=== PATIENT | female | born 1945 | race Caucasian/White ===

== ENCOUNTER 2017-09-19 15:31 | Inpatient (IN) | payer MEDICARE ==
[~2017-09-19] VITALS: Ht 157.5 cm; Wt 46.7 kg
[2017-09-19 17:00] VITALS: BP 130/88
[2017-09-19] MEDS ORDERED: MAG HYDROX/AL HYDROX/SIMETH 30 ML LIQUID UDC PO PRN (17:30)
[2017-09-19] MEDS ORDERED: MAGNESIUM HYDROXIDE 30 ML LIQUID UDC PO PRN (17:30)
[2017-09-19] MEDS ORDERED: ACETAMINOPHEN 325 MG TABLET PO PRN (17:30)
[2017-09-19] MEDS ORDERED: NO HOME MEDS (17:40)
[2017-09-19] MEDS ORDERED: TEMAZEPAM 7.5 MG CAPSULE PO PRN (17:45)
[2017-09-19] MEDS ORDERED: CLONAZEPAM 0.5 MG TABLET PO PRN (17:45)
[2017-09-19 20:14] VITALS: BP 119/69
[2017-09-20 06:47] LABS: BASOPHILS % (AUTO) 0.4 % (0.0-2.0); EOSINOPHILS # (AUTO) 0.1 K/uL (0.0-0.7); EOSINOPHILS % (AUTO) 1.6 % (0.0-7.0); HEMATOCRIT 37.2 % (31.2-41.9); HEMOGLOBIN 12.5 g/dL (10.9-14.3); LYMPHOCYTES % (AUTO) 22.7 % (20.5-51.5); MEAN CORPUSCULAR HEMOGLOBIN 29.2 uug (24.7-32.8); MEAN CORPUSCULAR HGB CONC 34 g/dL (32.3-35.6); MEAN CORPUSCULAR VOLUME 86.7 fL (75.5-95.3); MONOCYTES # (AUTO) 0.3 K/uL (2.0-10.0); MONOCYTES % (AUTO) 7.7 % (0.0-11.0); NEUTROPHILS % (AUTO) 67.6 % (38.5-71.5); PLATELET COUNT (AUTO) 186 K/uL (179-408); RED BLOOD CELL COUNT(AUTO) 4.29 MIL/uL (3.63-4.92); WHITE BLOOD COUNT (AUTO) 4.4 K/uL (3.8-11.8)
[2017-09-20 07:18] LABS: THYROID STIMULATING HORMONE 1.496 mIU/mL (0.358-3.740)
[2017-09-20 07:30] VITALS: BP 127/77
[2017-09-20 07:36] LABS: BILIRUBIN,TOTAL 0.9 mg/dL (0.2-1.0); MAGNESIUM 2.3 mg/dL (1.8-2.4); PHOSPHOROUS 3.8 mg/dL (2.5-4.9); POTASSIUM 4.2 mmol/L (3.5-5.1); TOTAL PROTEIN, SERUM 6.3 g/dL (6.4-8.2)
[2017-09-20] MEDS: OLANZAPINE ZYDIS 5 MG TAB.RAPDIS PO SCH (11:31)
[2017-09-20 15:26] VITALS: BP 102/63
[2017-09-20 20:23] VITALS: BP 105/73
[2017-09-21] MEDS: OLANZAPINE ZYDIS 5 MG TAB.RAPDIS PO SCH (08:26)
[2017-09-21 11:12] VITALS: BP 110/70
[2017-09-21 16:56] VITALS: BP 90/50
[2017-09-21 19:30] VITALS: BP 100/64
[2017-09-22 07:30] VITALS: BP 110/72
[2017-09-22] MEDS: OLANZAPINE ZYDIS 5 MG TAB.RAPDIS PO SCH (08:06)
[2017-09-22] MEDS: CHOLECALCIFEROL 1,000 UNIT TABLET PO SCH (08:06)
[2017-09-22 15:17] VITALS: BP 102/65
[2017-09-22 19:30] VITALS: BP 97/69
[2017-09-23 07:30] VITALS: BP 105/69
[2017-09-23] MEDS: CHOLECALCIFEROL 1,000 UNIT TABLET PO SCH (08:07)
[2017-09-23] MEDS: OLANZAPINE ZYDIS 5 MG TAB.RAPDIS PO SCH (08:07)
[2017-09-23 15:00] VITALS: BP 100/60
[2017-09-23 20:16] VITALS: BP 114/67
[2017-09-24 07:30] VITALS: BP 91/64
[2017-09-24] MEDS: CHOLECALCIFEROL 1,000 UNIT TABLET PO SCH (08:59)
[2017-09-24] MEDS: OLANZAPINE ZYDIS 5 MG TAB.RAPDIS PO SCH (08:59)
[2017-09-24 15:39] VITALS: BP 91/59
[2017-09-24 20:04] VITALS: BP 93/60
[2017-09-25 07:30] VITALS: BP 97/63
[2017-09-25] MEDS: CHOLECALCIFEROL 1,000 UNIT TABLET PO SCH (08:23)
[2017-09-25] MEDS: OLANZAPINE ZYDIS 5 MG TAB.RAPDIS PO SCH (08:23)
[2017-09-25 17:20] VITALS: BP 99/65
[2017-09-25 21:01] VITALS: BP 103/63
[2017-09-26 07:30] VITALS: BP 114/69
[2017-09-26] MEDS: OLANZAPINE ZYDIS 5 MG TAB.RAPDIS PO SCH (08:29)
[2017-09-26] MEDS: CHOLECALCIFEROL 1,000 UNIT TABLET PO SCH (08:29)
[2017-09-26 15:32] VITALS: BP 95/65
[2017-09-26 20:20] VITALS: BP 112/61
[2017-09-27 07:30] VITALS: BP 92/57
[2017-09-27] MEDS: OLANZAPINE ZYDIS 5 MG TAB.RAPDIS PO SCH (08:12)
[2017-09-27] MEDS: CHOLECALCIFEROL 1,000 UNIT TABLET PO SCH (08:13)
[2017-09-27 15:53] VITALS: BP 107/65
[2017-09-27 20:14] VITALS: BP 110/74
[2017-09-28 07:30] VITALS: BP 117/66
[2017-09-28] MEDS: CHOLECALCIFEROL 1,000 UNIT TABLET PO SCH (08:24)
[2017-09-28] MEDS: OLANZAPINE ZYDIS 5 MG TAB.RAPDIS PO SCH (08:27)
[2017-09-28 15:47] VITALS: BP 100/64
[2017-09-28 19:30] VITALS: BP 108/65
[2017-09-29 07:30] VITALS: BP 108/64
[2017-09-29] MEDS: CHOLECALCIFEROL 1,000 UNIT TABLET PO SCH (08:23)
[2017-09-29] MEDS ORDERED: OLANZAPINE ZYDIS 5 MG TAB.RAPDIS PO SCH (09:00)
[2017-09-29 15:28] VITALS: BP 107/67
[2017-09-29 19:30] VITALS: BP 107/68
[2017-09-30 07:30] VITALS: BP 126/73
[2017-09-30] MEDS: CHOLECALCIFEROL 1,000 UNIT TABLET PO SCH (09:12)
[2017-09-30] MEDS: OLANZAPINE ZYDIS 5 MG TAB.RAPDIS PO SCH (09:12)
[2017-09-30 16:52] VITALS: BP 120/63
[2017-09-30 20:06] VITALS: BP 117/86
[2017-10-01 07:06] LABS: BASOPHILS % (AUTO) 0.5 % (0.0-2.0); EOSINOPHILS # (AUTO) 0.1 K/uL (0.0-0.7); EOSINOPHILS % (AUTO) 2.2 % (0.0-7.0); HEMATOCRIT 36.1 % (31.2-41.9); HEMOGLOBIN 12.1 g/dL (10.9-14.3); LYMPHOCYTES # (AUTO) 1.2 K/uL (20.0-40.0); LYMPHOCYTES % (AUTO) 35.8 % (20.5-51.5); MEAN CORPUSCULAR HEMOGLOBIN 29.4 uug (24.7-32.8); MEAN CORPUSCULAR HGB CONC 34 g/dL (32.3-35.6); MEAN CORPUSCULAR VOLUME 87.4 fL (75.5-95.3); MONOCYTES # (AUTO) 0.4 K/uL (2.0-10.0); MONOCYTES % (AUTO) 11.7 % (0.0-11.0); NEUTROPHILS # (AUTO) 1.7 K/uL (1.8-8.9); NEUTROPHILS % (AUTO) 49.8 % (38.5-71.5); PLATELET COUNT (AUTO) 177 K/uL (179-408); RED BLOOD CELL COUNT(AUTO) 4.13 MIL/uL (3.63-4.92); WHITE BLOOD COUNT (AUTO) 3.4 K/uL (3.8-11.8)
[2017-10-01 07:23] LABS: CREATININE 0.9 mg/dL (0.6-1.3); POTASSIUM 4.8 mmol/L (3.5-5.1)
[2017-10-01 07:30] VITALS: BP 117/72
[2017-10-01] MEDS: CHOLECALCIFEROL 1,000 UNIT TABLET PO SCH (08:57)
[2017-10-01] MEDS: OLANZAPINE ZYDIS 5 MG TAB.RAPDIS PO SCH (08:57)
== END 2017-10-01 10:50 | disposition home or self-care (01) | DRG 885 ==
LOC: ER 15:33 → GPS 16:07
PROVIDERS: ADMIT Psychiatry & Neurology Psychiatry; ATTEND Internal Medicine
DX: F20.0 Paranoid schizophrenia (principal); Z88.0 Allergy status to penicillin; Z96.642 Presence of left artificial hip joint; Z87.820 Personal history of traumatic brain injury; R62.7 Adult failure to thrive; Z59.0 Homelessness; E55.9 Vitamin D deficiency, unspecified; F50.89 Other specified eating disorder
CPT/HCPCS: 36415; 82306; 83735; 84100; 84443; 85025; A4663